=== PATIENT | male | born 1970 | race Caucasian/White ===

== ENCOUNTER 2017-03-04 15:39 | Emergency (ER) | payer OTHER ==
[2017-03-04 17:07] LABS: APPEARANCE CLEAR (CLEAR); BILIRUBIN NEGATIVE (NEGATIVE); COLOR YELLOW (YELLOW); GLUCOSE NEGATIVE (NEGATIVE); KETONE SMALL mg/dL (NEGATIVE); LEUKOCYTE ESTERASE TRACE (NEGATIVE); NITRITE NEGATIVE (NEGATIVE); PROTEIN TRACE mg/dL (NEGATIVE); SPECIFIC GRAVITY 1.025 (1.005-1.020); UROBILINOGEN NORMAL (NORMAL)
[2017-03-04 17:13] LABS: RED CELLS - URINE 0-5 /hpf (0-5); WHITE CELLS - URINE >50 /hpf (0-5)
[2017-03-04 17:14] LABS: BACTERIA FEW /hpf (NONE SEEN)
== END 2017-03-04 19:05 | disposition left against medical advice (07) ==
LOC: D.ER 15:39
PROVIDERS: Family Medicine
DX: R36.9 Urethral discharge, unspecified (principal)